=== PATIENT | male | born 1985 | race Caucasian/White ===

== ENCOUNTER 2016-07-12 07:02 | Emergency (ER) | payer OTHER ==
[~2016-07-12] VITALS: Ht 182.9 cm; Wt 68.0 kg
[2016-07-12 07:06] VITALS: BP 136/82
[2016-07-12] MEDS ORDERED: SERT50TA PO (07:12)
[2016-07-12] MEDS ORDERED: ZOFR4TAB3 PO (07:52)
[2016-07-12] MEDS ORDERED: GUAISYP5 PO (07:52)
== END 2016-07-12 07:58 | disposition home or self-care (01) ==
LOC: M ED 07:48
DX: J06.9 Acute upper respiratory infection, unspecified (principal); R11.2 Nausea with vomiting, unspecified; R10.9 Unspecified abdominal pain; F17.210 Nicotine dependence, cigarettes, uncomplicated; Z79.899 Other long term (current) drug therapy

== ENCOUNTER 2021-12-06 09:43 | Emergency (ER) | payer OTHER ==
[~2021-12-06] VITALS: Ht 182.9 cm; Wt 65.9 kg
[~2021-12-06 09:43] MED LIST: GUAISYP5 PO; SERT-141 PO; ZOFR4TAB14 PO
[2021-12-06] MEDS ORDERED: ONDA4TAB6 PO (11:49)
[2021-12-06 12:00] VITALS: BP 131/81
== END 2021-12-06 12:01 | disposition home or self-care (01) ==
LOC: M ED 09:43
DX: S06.0X0A Concussion without loss of consciousness, initial encounter (principal); W22.8XXA Striking against or struck by other objects, initial encounter; Y92.89 Other specified places as the place of occurrence of the external cause; Y99.0 Civilian activity done for income or pay; F17.200 Nicotine dependence, unspecified, uncomplicated

== ENCOUNTER → 2022-03-23 | Outpatient (CLI) | payer OTHER ==
[~2022-03-23] MED LIST changes: +ONDA4TAB6 PO
== END ==
LOC: M OUTALCOH 07:37
PROVIDERS: ATTEND Psychiatry & Neurology Psychiatry
DX: Z13.30 Encounter for screening examination for mental health and behavioral disorders, unspecified (principal)

== ENCOUNTER 2022-04-12 07:44 | Outpatient (RCR) | payer OTHER | END 2022-04-15 | LOC: M OUTALCOH 07:44 | PROVIDERS: ATTEND Psychiatry & Neurology Psychiatry | DX: F10.20 Alcohol dependence, uncomplicated (principal); F17.200 Nicotine dependence, unspecified, uncomplicated ==

== ENCOUNTER → 2022-05-16 | Outpatient (RCR) | payer OTHER | LOC: M OUTALCOH 04-18 16:00 | PROVIDERS: ATTEND Psychiatry & Neurology Psychiatry | DX: F10.20 Alcohol dependence, uncomplicated (principal); F17.200 Nicotine dependence, unspecified, uncomplicated ==

== ENCOUNTER 2022-06-09 07:51 | Outpatient (RCR) | payer OTHER | END 2022-06-13 | LOC: M OUTALCOH 07:51 | PROVIDERS: ATTEND Psychiatry & Neurology Psychiatry | DX: F10.10 Alcohol abuse, uncomplicated (principal); F17.200 Nicotine dependence, unspecified, uncomplicated ==

== ENCOUNTER 2022-06-16 07:43 | Outpatient (RCR) | payer OTHER | END 2022-07-14 | LOC: M OUTALCOH 07:43 | PROVIDERS: ATTEND Psychiatry & Neurology Psychiatry | DX: F10.10 Alcohol abuse, uncomplicated (principal); F17.200 Nicotine dependence, unspecified, uncomplicated ==